=== PATIENT | female | born 1935 | race Caucasian/White ===

== ENCOUNTER → 2016-07-25 | Emergency (ER) | payer MEDICARE ==
[~2016-07-25] MED LIST: Aspirin TAB* 325 MG PO ONE; Iohexol 350* (CONTRAST) 500 ML MDV IV ONE; Meclizine TAB* 12.5 MG PO ONE
[2016-07-25 09:13] LABS: Hematocrit 37 % (35-47); Hemoglobin 11.9 g/dl (12.0-16.0); Mean Corpuscular HGB Conc 33 g/dl (31-36); Mean Corpuscular Hemoglobin 30 pg (27-31); Mean Corpuscular Volume 93 fL (80-97); Mean Platelet Volume 8 um3 (7.4-10.4); Red Blood Count 3.94 10^6/ul (4.0-5.4); Red Cell Distribution Width 15 % (10.5-15); White Blood Count 9.4 10^3/ul (3.5-10.8)
[2016-07-25 09:31] LABS: Albumin 3.6 g/dL (3.2-5.2); BUN/Creatinine Ratio 20.7 (8-20); C Reactive Protein 17.13 mg/L (< 5.00); EGFR African American 129.3 (>60); EGFR Non-African American 100.5 (>60); Globulin 3.3 g/dL (2-4); Magnesium 2.2 mg/dL (1.9-2.7); Total Bilirubin 0.4 mg/dL (0.2-1.0); Total Protein 6.9 g/dL (6.4-8.9)
[2016-07-25 09:33] LABS: Troponin I 0.03 ng/mL (<0.04)
[2016-07-25 09:36] LABS: Potassium 4.4 mmol/L (3.5-5.0)
--- NOTE | 2016-07-25 09:42 | RAD ---
HISTORY: Chest pain COMPARISONS: None VIEWS:1: Single frontal portable view of the chest at 9:25 AM FINDINGS: LINES AND TUBES: None. CARDIOMEDIASTINAL SILHOUETTE: The cardiomediastinal silhouette is normal for portable technique. PLEURA: The costophrenic angles are sharp. No pleural abnormalities are noted. LUNG PARENCHYMA: The lungs are clear. ABDOMEN: The upper abdomen is clear. There is no subphrenic gas. BONES AND SOFT TISSUES: The patient is status post median sternotomy. IMPRESSION: NO ACTIVE CARDIOPULMONARY DISEASE.
[2016-07-25 09:56] LABS: TSH (Thyroid Stimulating Horm) 2.11 mcIU/mL (0.34-5.60)
[2016-07-25 11:09] LABS: Urine Bacteria Absent (Absent); Urine Bilirubin Negative (Negative); Urine Glucose Negative (Negative); Urine Nitrite Negative (Negative)
--- NOTE | 2016-07-25 11:39 | RAD ---
HISTORY: Chest pain COMPARISONS: None TECHNIQUE: Multiple contiguous axial CT scans of the chest were obtained after the administration of nonionic intravenous contrast, timed to the pulmonary arterial phase of contrast enhancement.. Coronal and sagittal multiplanar reformations are also submitted for review. FINDINGS: NECK AND THYROID: The lower neck and thyroid are unremarkable. CHEST WALL: There is no lower cervical, axillary, or supraclavicular lymphadenopathy by size criteria. HEART AND PERICARDIUM: The heart is unremarkable. AORTA AND PULMONARY VASCULATURE: There is no pulmonary arterial filling defect to suggest pulmonary embolism. Evaluation of the aorta is limited secondary to suboptimal contrast opacification; however, there is no appreciable linear filling defect within the aorta to suggest aortic dissection. MEDIASTINUM: There is no mediastinal lymphadenopathy by size criteria. BECK: There is no hilar lymphadenopathy by size criteria. AIRWAY AND ESOPHAGUS: The airway is unremarkable, without endobronchial filling defect. The esophagus is grossly normal. LUNG PARENCHYMA: The lungs are clear. PLEURA: No pleural abnormalities are noted. UPPER ABDOMEN: The upper abdomen is unremarkable. BONES AND SOFT TISSUES: The patient is status post median sternotomy. OTHER: None. IMPRESSION: NO PULMONARY ARTERIAL FILLING DEFECT TO SUGGEST PULMONARY EMBOLISM
[2016-07-25 11:43] LABS: Erythrocyte Sed Rate 50 mm/Hr (0-40)
--- NOTE | 2016-07-25 13:09 | ED ---
Chase Pizano Karl, scribed for Maverick Campoverde MD on 07/25/16 at 0858 . HPI Chest Pain - HPI Summary HPI Summary: Pt is a 80 y/o female that presents to the ED c/o CP. Pt reported that she has been feeling intermittent right sided CP, tingling in her toes, and dizziness for the past 2 days. Pt stated that the CP is similar to the CP she felt when she had pericarditis in 1995. Pt described the pain as a stabbing pain that takes her breath away and is an 8/10 at its worst but is at a 0/10 while in the ED, with the last instance of pain being at 05:00 this morning. Pt stated that the episodes of pain last for approx 30 sec. Pt denied nausea, SOB, diaphoresis , and swelling in her ankles. 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 - History of Current Complaint Chief Complaint: EDChestPainROMI Time Seen by Provider: 07/25/16 08:50 Hx Obtained From: Patient Onset/Duration: Started Days Ago - 2, Atraumatic, Still Present Timing: Intermittent Pain Intensity: 0 - Allergy/Home Medications Allergies/Adverse Reactions: Allergies Allergy/AdvReac Type Severity Reaction Status Date / Time NSAIDs Allergy Rash Verified 07/25/16 08:52 PMH/Surg Hx/FS Hx/Imm Hx Infectious Disease History: No Infectious Disease History: Denies: Traveled Outside the US in Last 30 Days - Family History Known Family History: Positive: Cardiac Disease - mother, Other - [place] - sister - Social History Alcohol Use: None Substance Use Type: Reports: None Hx Tobacco Use: No Smoking Status (MU): Never Smoked Tobacco Review of Systems Negative: Skin Diaphoresis Eyes: Negative ENT: Negative Positive: Chest Pain Negative: Shortness Of Breath Negative: Nausea Genitourinary: Negative Negative: Edema Skin: Negative Neurological: Other - dizziness Positive: Paresthesia - intoes Psychological: Normal All Other Systems Reviewed And Are Negative: Yes Physical Exam Triage Information Reviewed: Yes Vital Signs On Initial Exam: Initial Vitals Temp Pulse Resp BP Pulse Ox 98.6 F 75 16 157/73 94 07/25/16 08:49 07/25/16 08:49 07/25/16 08:49 07/25/16 08:49 07/25/16 08:49 Vital Signs Reviewed: Yes Appearance: Positive: Well-Appearing, No Pain Distress Skin: Positive: Warm, Skin Color Reflects Adequate Perfusion, Dry Head/Face: Positive: Normal Head/Face Inspection Eyes: Positive: EOMI, DEE DEE ENT: Positive: Normal ENT inspection Neck: Positive: Supple, Nontender Respiratory/Lung Sounds: Positive: Clear to Auscultation, Breath Sounds Present Cardiovascular: Positive: Murmur - w/ irregular cardiac rhythm Abdomen Description: Positive: Nontender, Soft Bowel Sounds: Positive: Present Musculoskeletal: Positive: Normal, Strength/ROM Intact. Negative: Edema Left, Edema Right Neurological: Positive: Normal, Sensory/Motor Intact, Alert, Oriented to Person Place, Time Psychiatric: Positive: Affect/Mood Appropriate Diagnostics - Vital Signs Vital Signs Temp Pulse Resp BP Pulse Ox 07/25/16 08:49 98.6 F 75 16 157/73 94 - Laboratory Lab Results: Lab Results 07/25/16 07/25/16 07/25/16 Range/Units 09:00 09:00 09:00 WBC 9.4 (3.5-10.8) 10^3/ul RBC 3.94 L (4.0-5.4) 10^6/ul Hgb 11.9 L (12.0-16.0) g/dl Hct 37 (35-47) % MCV 93 (80-97) fL MCH 30 (27-31) pg MCHC 33 (31-36) g/dl RDW 15 (10.5-15) % Plt Count 309 (150-450) 10^3/ul MPV 8 (7.4-10.4) um3 Neut % (Auto) 61.9 (38-83) % Lymph % (Auto) 24.9 L (25-47) % [place] % (Auto) 7.3 (1-9) % Eos % (Auto) 4.7 (0-6) % Baso % (Auto) 1.2 (0-2) % Absolute Neuts (auto) 5.8 (1.5-7.7) 10^3/ul Absolute Lymphs (auto) 2.3 (1.0-4.8) 10^3/ul Absolute Monos (auto) 0.7 (0-0.8) 10^3/ul Absolute Eos (auto) 0.4 (0-0.6) 10^3/ul Absolute Basos (auto) 0.1 (0-0.2) 10^3/ul Absolute Nucleated RBC 0.01 10^3/ul Nucleated RBC % 0.1 ESR 50 H (0-40) mm/Hr INR (Anticoag Therapy) 1.03 (0.89-1.11) APTT 31.8 (26.0-36.3) seconds D-Dimer, Quantitative > 1050 H (Less Than 230) ng/mL Sodium 140 (133-145) mmol/L Potassium 4.4 (3.5-5.0) mmol/L Chloride 106 (101-111) mmol/L Carbon Dioxide 27 (22-32) mmol/L Anion Gap 7 (2-11) mmol/L BUN 12 (6-24) mg/dL Creatinine 0.58 (0.51-0.95) mg/dL Est GFR ( Amer) 129.3 (>60) Est GFR (Non-Af Amer) 100.5 (>60) BUN/Creatinine Ratio 20.7 H (8-20) Glucose 98 (70-100) mg/dL Lactic Acid (0.5-2.0) mmol/L Calcium 9.0 (8.6-10.3) mg/dL Magnesium 2.2 (1.9-2.7) mg/dL Total Bilirubin 0.40 (0.2-1.0) mg/dL AST 21 (13-39) U/L ALT 10 (7-52) U/L Alkaline Phosphatase 97 (34-104) U/L Total Creatine Kinase 30 (10-223) U/L CK-MB (CK-2) 3.3 (0.6-6.3) ng/mL Troponin I 0.03 (<0.04) ng/mL C-Reactive Protein 17.13 H (< 5.00) mg/L Total Protein 6.9 (6.4-8.9) g/dL Albumin 3.6 (3.2-5.2) g/dL Globulin 3.3 (2-4) g/dL Albumin/Globulin Ratio 1.1 (1-3) Lipase 24 (11.0-82.0) U/L TSH 2.11 (0.34-5.60) mcIU/mL Urine Color Urine Appearance Urine pH (5-9) Ur Specific Olds (1.010-1.030) Urine Protein (Negative) Urine Ketones (Negative) Urine Blood (Negative) Urine Nitrate (Negative) Urine Bilirubin (Negative) Urine Urobilinogen (Negative) Ur Leukocyte Esterase (Negative) Urine WBC (Auto) (Absent) Urine RBC (Auto) (Absent) Ur Squamous Epith Cells (Absent) Urine Bacteria (Absent) Urine Glucose (Negative) 07/25/16 07/25/16 Range/Units 09:00 10:50 WBC (3.5-10.8) 10^3/ul RBC (4.0-5.4) 10^6/ul Hgb (12.0-16.0) g/dl Hct (35-47) % MCV (80-97) fL MCH (27-31) pg MCHC (31-36) g/dl RDW (10.5-15) % Plt Count (150-450) 10^3/ul MPV (7.4-10.4) um3 Neut % (Auto) (38-83) % Lymph % (Auto) (25-47) % [place] % (Auto) (1-9) % Eos % (Auto) (0-6) % Baso % (Auto) (0-2) % Absolute Neuts (auto) (1.5-7.7) 10^3/ul Absolute Lymphs (auto) (1.0-4.8) 10^3/ul Absolute Monos (auto) (0-0.8) 10^3/ul Absolute Eos (auto) (0-0.6) 10^3/ul Absolute Basos (auto) (0-0.2) 10^3/ul Absolute Nucleated RBC 10^3/ul Nucleated RBC % ESR (0-40) mm/Hr INR (Anticoag Therapy) (0.89-1.11) APTT (26.0-36.3) seconds D-Dimer, Quantitative (Less Than 230) ng/mL Sodium (133-145) mmol/L Potassium (3.5-5.0) mmol/L Chloride (101-111) mmol/L Carbon Dioxide (22-32) mmol/L Anion Gap (2-11) mmol/L BUN (6-24) mg/dL Creatinine (0.51-0.95) mg/dL Est GFR ( Amer) (>60) Est GFR (Non-Af Amer) (>60) BUN/Creatinine Ratio (8-20) Glucose (70-100) mg/dL Lactic Acid 1.4 (0.5-2.0) mmol/L Calcium (8.6-10.3) mg/dL Magnesium (1.9-2.7) mg/dL Total Bilirubin (0.2-1.0) mg/dL AST (13-39) U/L ALT (7-52) U/L Alkaline Phosphatase (34-104) U/L Total Creatine Kinase (10-223) U/L CK-MB (CK-2) (0.6-6.3) ng/mL Troponin I (<0.04) ng/mL C-Reactive Protein (< 5.00) mg/L Total Protein (6.4-8.9) g/dL Albumin (3.2-5.2) g/dL Globulin (2-4) g/dL Albumin/Globulin Ratio (1-3) Lipase (11.0-82.0) U/L TSH (0.34-5.60) mcIU/mL Urine Color Yellow Urine Appearance Cloudy Urine pH 7.0 (5-9) Ur Specific Olds 1.009 L (1.010-1.030) Urine Protein Negative (Negative) Urine Ketones Negative (Negative) Urine Blood 1+ H (Negative) Urine Nitrate Negative (Negative) Urine Bilirubin Negative (Negative) Urine Urobilinogen Negative (Negative) Ur Leukocyte Esterase 3+ H (Negative) Urine WBC (Auto) 2+(11-20/hpf) H (Absent) Urine RBC (Auto) Trace(0-2/hpf) (Absent) Ur Squamous Epith Cells Present H (Absent) Urine Bacteria Absent (Absent) Urine Glucose Negative (Negative) Result Diagrams: 07/25/16 09:00 07/25/16 09:00 Lab Statement: Any lab studies that have been ordered have been reviewed, and results considered in the medical decision making process. - Radiology CXR Xray Interpretation: No Acute Changes Radiology Interpretation Completed By: Radiologist - IMPRESSION: NO ACTIVE CARDIOPULMONARY DISEASE. - EKG 08:50 Cardiac Rate: NL - at 68 bpm EKG Interpretation: Ectopic atrial rhythm, LBBB Re-Evaluation - Re-Evaluation First Eval Re-Evaluation Time: 10:48 Change: Unchanged Comment: Discussed consult with supervisor wall mirror department and results of imaging study Second Eval Re-Evaluation Time: 12:59 Change: Unchanged Comment: discussed plan for further treatment with pt Chest Pain Course/Dx - Course Assessment/Plan: DISCUSSED RESULTS WITH PATIENT. DISCUSSED WITH CARDIOLOGY, DR MONIQUE. WILL INCREASE ASPIRIN DOSE TO TREAT FOR POSTOPERATIVE PERICARDIAL SYNDROME. DISCHARGE HOME STABLE. - Diagnoses Provider Diagnoses: Chest pain, Pericardial disease or syndrome - Provider Notifications Discussed Care Of Patient With: Dr. Monique (Cardiology) at 10:30 Discharge - Discharge Plan Condition: Stable Disposition: HOME Patient Education Materials: Chest Pain (ED) Referrals: Tim Burgos MD [Medical Doctor] - Additional Instructions: FOLLOW UP WITH DR BURGOS SCHEDULED. TAKE THE EQUIVALENT OF 325MG OF ASPIRIN A DAY (ONE 325MG TABLET OR FOUR 81MG TABLETS). RETURN TO THE EMERGENCY DEPARTMENT FOR ANY WORSENING OF YOUR CONDITION; CHEST PAIN, SHORTNESS OF BREATH, YOU FEEL ILL OR QUESTIONS OR CONCERNS. The documentation as recorded by the Chase pittman Karl accurately reflects the service I personally performed and the decisions made by me, Maverick Campoverde MD.
[2016-07-25 13:44] VITALS: BP 132/78
== END | disposition home or self-care (01) ==
LOC: ED 08:44
DX: I31.9 Disease of pericardium, unspecified (principal); R07.9 Chest pain, unspecified
CPT/HCPCS: 36415; 71010; 71275; 80053; 81003; 81015; 82550; 82553; 83605; 83690; 83735; 84443; 84484; 85025; 85379; 85610; 85652; 85730; 86140; 87086; 93005; 99282; 99284; A9270-GY; Q9967

== ENCOUNTER 2019-10-10 11:16 | Observation (INO) | payer MEDICARE ==
--- NOTE | 2019-10-10 11:40 | ED ---
Respiratory - HPI Summary HPI Summary: 83 y/o female presented to [facility] by ambulance as a transfer from [facility] where she was diagnosed with pulmonary edema. Pt woke up at 4am with dyspnea, SOB, and dry cough. Pt denies fever, sore throat, myalgia, V/D, and leg edema. Pt was given Lasix in [facility] which made her feel better. Per EMS, vitals were normal at the scene. Pt has had surgery at the [facility] for a hypertrophic heart. Pt is not diabetic and has fhx of HTN. Pt is concerned about COVID-19 because someone who visits her frequently has been in contact with someone who was traveling in [place] for a long time. Pt has had no known direct contact with an individual with COVID-19. Medications reviewed. Allergies noted. - History of Current Complaint Stated Complaint: SHORT OF BREATH PER EMS Time Seen by Provider: 10/10/19 11:30 Hx Obtained From: Patient Onset/Duration: Lasting Hours, Still Present Character: Cough (Nonproductive), Dyspnea at Rest Sputum Amount: None Aggravating Factor(s): Nothing Alleviating Factor(s): Dose Of Medications - Lasix Associated Signs and Symptoms: SOB - Allergy/Home Medications Allergies/Adverse Reactions: Allergies Allergy/AdvReac Type Severity Reaction Status Date / Time NSAIDS (Non-Steroidal Allergy Unknown Verified 10/10/19 12:32 Anti-Inflamma Reaction Details PMH/Surg Hx/FS Hx/Imm Hx Endocrine/Hematology History: Denies: Hx Diabetes Cardiovascular History: Reports: Hx Hypertension, Other Cardiovascular Problems/ Disorders - PERICARDITIS 1996 Denies: Hx Pacemaker/ICD Respiratory History: Denies: Other Respiratory Problems/Disorders History: Denies: Hx Renal Disease - Surgical History Surgery Procedure, Year, and Place: open heart surgery-06/2016 Infectious Disease History: Denies: Traveled Outside the [place] in Last 30 Days - Family History Known Family History: Positive: Cardiac Disease - mother, Other - [place] - sister - Social History Alcohol Use: None Substance Use Type: Reports: None Hx Tobacco Use: No Smoking Status (MU): Never Smoked Tobacco Review of Systems Negative: Fever Negative: Sore Throat Positive: Shortness Of Breath, Cough - dry, Other - dyspnea Negative: Vomiting, Diarrhea Negative: Myalgia, Edema - legs All Other Systems Reviewed And Are Negative: Yes Physical Exam - Summary Physical Exam Summary: Constitutional: Well-developed, Well-nourished, Alert. (-) Distressed Skin: Warm, Dry HENT: Normocephalic; Atraumatic Eyes: Conjunctiva normal Neck: Musculoskeletal ROM normal neck. (-) JVD, (-) Stridor, (-) Tracheal deviation Cardio: Rhythm regular, rate normal, Heart sounds normal; Intact distal pulses; Radial pulses are 2+ and symmetric. (-) Murmur Pulmonary/Chest wall: Effort normal. (-) Respiratory distress, (-) Wheezes, (-) Rales, Speaking in full sentences Abd: Soft, (-) tenderness, (-) Distension, (-) Guarding, (-) Rebound Musculoskeletal: (-) Peripheral Edema Lymph: (-) Cervical adenopathy Neuro: Alert, Oriented x3 Psych: Mood and affect Normal Triage Information Reviewed: Yes Vital Signs Reviewed: Yes Procedures - Sedation Patient Received Moderate/Deep Sedation with Procedure: No Disposition - Course Course Of Treatment: Patient was transferred from [facility] with a suspected CHF exacerbation. Patient did not arrive with her blood tests or copy of her chest x-ray. Patient has had cough and shortness of breath and has never felt this way before. Given patient's rest for symptoms and being admitted to the hospital, patient was tested for Covid 19. Patient was admitted to the hospitalist - Diagnoses Provider Diagnoses: Pulmonary edema, Cough, SOB (shortness of breath), Hypertrophic cardiomyopathy - Physician Notifications Discussed Care Of Patient With: Carisa Li Time Discussed With Above Provider: 11:31 Instructed by Provider To: Other - Pt case was discussed with Dr. Hillman, who accepts the pt for admission. Discharge ED - Sign-Out/Discharge Documenting (check all that apply): Patient Departure - admit - Discharge Plan Condition: Stable Disposition: ADMITTED TO [facility] - Billing Disposition and Condition Condition: STABLE Disposition: Admitted to [facility] - Attestation Statements Document Initiated by Scribe: Yes Documenting Scribe: Armani Calvo Provider For Whom Hernando is Documenting (Include Credential): José Parham MD Scribe Attestation: Armani Pizano, scribed for José Parham MD on 10/10/19 at 1458. Scribe Documentation Reviewed: Yes Provider Attestation: The documentation as recorded by the scribe, Armani Calvo accurately reflects the service I personally performed and the decisions made by me, José Parham MD Status of Hernando Document: Viewed
[2019-10-10] MEDS ORDERED: Acetaminophen TAB* 325 MG PO PRN (12:19)
[2019-10-10] MEDS ORDERED: Ondansetron INJ* 2 MG/ML VIAL IV PRN (12:19)
[2019-10-10] MEDS ORDERED: Furosemide IV* 10 MG/ML VIAL (40 MG) IV SLOW PU ONE (12:22)
[2019-10-10 13:33] LABS: Troponin I 0.03 ng/mL (<0.03)
[2019-10-10 14:45] LABS: Influenza A Molecular Negative (Negative); Influenza B Molecular Negative (Negative)
[2019-10-10] MEDS: Enoxaparin(*) 40 MG/0.4 ML SYR SUBCUT SCH (14:46)
--- NOTE | 2019-10-10 15:37 | HP ---
CC: Dr. Tim Umaña * ADMISSION HISTORY AND PHYSICAL: DATE OF ADMISSION: 10/10/19 PRIMARY CARE PROVIDER: None. MY ATTENDING WHILE IN THE HOSPITAL: Dr. Carisa Li.* (DICTATED BY CARLA GUZMAN) OUTPATIENT INVESTMENT MANAGER: Dr. Tim Umaña. CHIEF COMPLAINT: Shortness of breath x9 hours. HISTORY OF PRESENT ILLNESS: Ms. Latham is an 83-year-old female with past medical history significant for obstructive sleep apnea; hypertrophic obstructive cardiomyopathy, status post myectomy; coronary artery disease; aortic stenosis; mitral stenosis, who presents to the emergency department after this morning she was awoken by a strange sound from her CPAP machine as it blew air into her chest. When she woke up and took off her CPAP, she noted she was more short of breath than she normally is. She feels like she might have been more short of breath for the last 2 days. She has been going out in public particularly to with limited interactions as well as to the grocery store; however, she does live by herself and has no known sick contacts. The patient has not had any fevers or chills. No chest pain. The patient has had no issues after her surgery. The patient had no high salt meals or other changes in her medications. It occurred 3 days ago and may have brought on her symptoms. The patient has had 3 hours of diarrhea as well coinciding with her shortness of breath. The patient has had no swelling in her legs. No shortness of breath lying flat. The patient has no general functional limitations prior to today. The patient was seen initially at [facility] Emergency Department and was diagnosed with CHF and was sent here; however, here given the patient's shortness of breath and new dry cough, the patient had a COVID-19 swab run. The patient will be a direct admission from the [facility] ED. PAST MEDICAL HISTORY: Obstructive sleep apnea, hypertrophic obstructive cardiomyopathy, hypertension, coronary artery disease, aortic stenosis, mitral stenosis, hyperlipidemia, GERD. PAST SURGICAL HISTORY: Cholecystectomy, septal ablation, back surgery, cardiac catheterization in 2016. MEDICATIONS: 1. Metoprolol tartrate 75 mg p.o. b.i.d. 2. Aspirin 81 mg p.o. daily. 3. Eye Multivitamin. ALLERGIES: DICLOXACILLIN, VYTORIN, NSAIDS. FAMILY HISTORY: The patient's father of stroke. The patient's mother of old age, but also had HOCM. The patient has a sister, who 5 years ago of breast cancer. SOCIAL HISTORY: The patient has never smoked, drank, or used illicit drugs. 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 The patient is not . The patient's surrogate decision maker will be her daughter, Chloe Dudley. REVIEW OF SYSTEMS: A 10-point review of systems was reviewed and is negative except as above in the HPI. PHYSICAL EXAMINATION GENERAL: The patient is an 83-year-old female who appears younger than stated age and sitting comfortably in bed, in no acute distress. VITAL SIGNS: At the time of evaluation, temperature 97.9, pulse rate 65, respiratory rate 16, oxygen saturation 94% on room air, blood pressure 154/82. HEENT: Head: Normocephalic, atraumatic. Sclerae anicteric. No conjunctival injection. Nasal mucosa moist. Oral mucosa moist. No pharyngeal erythema, discharge, or exudate. NECK: Supple, nontender. No lymphadenopathy. No carotid bruits auscultated. No JVD. RESPIRATORY: Clear to auscultation bilaterally. No wheezes, rales, or rhonchi. Good air exchange bilaterally. CARDIAC: Regular rate and rhythm. No clicks, murmurs, gallops, or rubs. Pulses are 2+ in the bilateral dorsalis pedis, posterior tibialis, and radial areas. ABDOMEN: Soft, nontender, nondistended. Bowel sounds present and normoactive in all 4 quadrants. No hepatosplenomegaly. No abdominal bruits auscultated. No hepatojugular reflux. GENITOURINARY: No suprapubic or CVA tenderness. NEURO: Cranial nerves II through XII intact. No focal deficits. Alert and oriented x3. PSYCHIATRIC: Pleasant and cooperative. SKIN: Clean, dry, and intact. No rash. DIAGNOSTIC STUDIES: Chest x-ray to this author's view shows increased interstitial markings primarily in the bases, cardiomegaly, possibly consistent with pulmonary edema or possibly COVID-19. Increased interstitial markings were also present somewhat on CTA from 2017. ASSESSMENT AND PLAN: Impression: Ms. Latham is an 83-year-old female with past medical history significant for obstructive sleep apnea, hypertrophic obstructive cardiomyopathy, aortic stenosis, and coronary artery disease, who presents to the emergency department with a 9-hour history of shortness of breath and dry cough without obvious provocation, who has risk factors for heart failure, who will be admitted to the hospital for heart failure management as well as ruling out coronavirus infection. 1. Shortness of breath, cough. The patient has new shortness of breath and cough that was relatively acute onset possibly with some gradual building over the last 2 days, but mainly coming up suddenly overnight. The patient's chest x-ray could be consistent with heart failure or infectious etiology. The patient has had no fevers at this point that have been documented. The patient also has not had any hypoxia and felt better after Lasix at [facility]. The patient will have an echocardiogram to assess her left ventricle as well as another dose of Lasix. Given the patient had no obvious risk factors or provocation for her new heart failure, the patient will be ruled out for coronavirus and monitored closely for fevers. The patient will likely go home tomorrow and this can be followed up with the [facility]. The patient also has new diarrhea that is nonbloody and nonsevere, but may be indicative of problem not related to heart failure. The patient will be risk stratified with lipid profile and a hemoglobin A1c as well and have troponins drawn now and repeated in the morning if indicated. She will also have a repeat chest x-ray in the morning. A BNP on this patient was not drawn. If this is markedly elevated, then consideration for removal of the coronavirus precautions will be undertaken. 2. Obstructive sleep apnea. Continue the patient's CPAP at home. 3. Hypertension. Continue the patient's metoprolol. 4. Coronary artery disease. Continue the patient's aspirin. The patient is statin intolerant. Lipid profile will be drawn. The patient has left bundle branch on her EKG, which is consistent with previous per [facility] records likely related to her myectomy, but no other ischemic signs. Troponins will be drawn as above. 5. Valvular disease. The patient has aortic stenosis and mitral stenosis. These will be further evaluated with an echocardiogram. 6. Hyperlipidemia. The patient is statin intolerant as above. If the patient rules in for myocardial infarction, then consideration for PCSK9 inhibitor or Zetia should be undertaken. 7. DVT prophylaxis: Lovenox subcu. The patient is a high risk. 8. FEN: The patient will have a heart-healthy diet without caffeine and will not be given fluids. TIME SPENT: Approximately 60 minutes was spent on the admission of this patient , 30 of which was spent [id number] with the patient obtaining history and physical and discussing treatment plan. This plan was discussed with my attending, Dr. Carisa Li, and she is in agreement. CARLA GUZMAN [id number]/[facility] #: [id number] SARAH
--- NOTE | 2019-10-10 15:41 | PN ---
Hospitalist Progress Note Date of Service: 10/10/19 Troponin came back mildly elevated with elevated BNP. With persistence of afebrile state and response to Lasix, will cancel COVID rule out precautions.
[2019-10-10] MEDS: Metoprolol Tartrate TAB* 50 mg PO SCH (21:28)
[2019-10-10 23:31] LABS: BUN/Creatinine Ratio 22.4 (8-20); Calcium 9.5 mg/dL (8.6-10.3); EGFR African American 77.7 (>60); EGFR Non-African American 64.2 (>60); Potassium 3.5 mmol/L (3.5-5.0)
[2019-10-10] MEDS ORDERED: Potassium Chlor TAB* 20 MEQ TAB.ER PO ONE (23:36)
[2019-10-11 05:44] LABS: ABS Basophils 0.1 10^3/ul (0-0.2); ABS Eosinophils 0.2 10^3/ul (0-0.6); ABS Lymphocytes 2.8 10^3/ul (1.0-4.8); ABS Neutrophils 7.6 10^3/ul (1.5-7.7); Eosinophil % 1.3 %; Hematocrit 43 % (35-47); Hemoglobin 14.4 g/dL (12.0-16.0); Lymphocyte % 23.8 %; Mean Corpuscular HGB Conc 34 g/dL (31-36); Mean Corpuscular Hemoglobin 32 pg (27-31); Mean Corpuscular Volume 93 fL (80-97); Mean Platelet Volume 8.3 fL (7.4-10.4); Platelet Count 214 10^3/uL (150-450); Red Blood Count 4.56 10^6 /uL (3.70-4.87); Red Cell Distribution Width 14 % (10-15); White Blood Count 11.7 10^3/uL (3.5-10.8)
[2019-10-11 06:07] LABS: BUN/Creatinine Ratio 28.8 (8-20); Calcium 9.6 mg/dL (8.6-10.3); EGFR African American 103.7 (>60); EGFR Non-African American 85.7 (>60); HDL Cholesterol 40.2 mg/dL; Magnesium 2.1 mg/dL (1.9-2.7); Potassium 4.1 mmol/L (3.5-5.0)
[2019-10-11] MEDS ORDERED: Perflutren Lipid Microsphere* 3 ML VIAL ONE (08:02)
[2019-10-11] MEDS ORDERED: Aspirin EC TAB* 81 MG TAB.EC PO SCH (09:00)
--- NOTE | 2019-10-11 09:10 | ECHO ---
*[facility]* [place] [address] Fax #: [phone] Transthoracic Echocardiogram Patient: Mayelin Latham : 1935 Study Date: 10/11/2019 Age: 84 Gender: F HR: 66 bpm Height: 60 in /152.4 cm BSA: 1.6 m^2 Weight: 139.7 lb /63.5 kg BMI: 27.3 kg/m^2 *Supervisor [employer]: * Maryan Urbano [facility] *Referring Physician: * Maverick Lerma *Reading Physician: * Elkin Hunter MD Indications: SOB. History: Left ventricular outflow tract obstruction. Coronary artery disease. Hypertrophic cardiomyopathy. The patient is status post cardiac surgery. Aortic stenosis. Mitral regurgitation. Risk factors: Hypertension. Dyslipidemia. Conclusions Summary: - Left ventricle: The cavity size is mildly reduced. Wall thickness is moderately to severely increased. Systolic function is normal. The estimated ejection fraction is 55-60%. There is dynamic obstruction at rest in the outflow tract, with a peak gradient of 14 mm Hg. - Right ventricle: Systolic function is normal. - Ventricular septum: The interventricular septum appears dyssynchronous due to LBBB - Mitral valve: The findings are consistent with mild to moderate stenosis. - Aortic valve: The leaflets are moderately thickened. The findings are consistent with moderate stenosis. The systolic velocity-time integral is 63.0 cm. The LVOT to aortic valve VTI ratio is 0.6. The valve area by the velocity-time integral method is 1.62 cm^2. The valve area by the peak velocity method is 1.74 cm^2. - Tricuspid valve: There is no significant regurgitation. - Pulmonary arteries: Systolic pressure can not be accurately estimated. - Compared to study of 09/24/17, there is no significant change. Study data: Transthoracic echocardiogram. Procedure: Transthoracic echocardiography was performed. Image quality was adequate. Intravenous Definity , 2 mlswas administered. Complete 2D, spectral Doppler, and color flow Doppler. Location: Bedside. Patient status: Inpatient. Patient room number: 403. Rhythm: Normal sinus rhythm. Findings Left ventricle: The cavity size is mildly reduced. Wall thickness is moderately to severely increased. Systolic function is normal. The estimated ejection fraction is 55-60%. There is dynamic obstruction at rest in the outflow tract, with a peak gradient of 14 mm Hg. Regional wall motion abnormalities: Hypokinesis of the basalinferoseptal myocardium; consistent with postoperative changes. Doppler parameters are consistent with abnormal left ventricular relaxation (grade 1 diastolic dysfunction). Right ventricle: The cavity size is normal. Systolic function is normal. Ventricular septum: The interventricular septum appears dyssynchronous due to LBBB Left atrium: The atrium is severely dilated. Right atrium: The atrium is normal in size. Mitral valve: The Mitral valve annulus appears . The leaflets are moderately thickened. The findings are consistent with mild to moderate stenosis. There is mild regurgitation, directed eccentrically. Aortic valve: The leaflets are moderately thickened. Valve mobility is restricted. The findings are consistent with moderate stenosis. There is mild regurgitation. Tricuspid valve: The leaflets are normal thickness. There is no evidence of stenosis. There is no significant regurgitation. Pulmonic valve: The leaflets are normal thickness. There is no evidence of stenosis. There is no significant regurgitation. Aorta: The aortic root appears normal. The aortic arch appears normal. Pericardium: There is no significant pericardial effusion. Pulmonary arteries: Systolic pressure can not be accurately estimated. Systemic veins: Inferior vena cava: The vessel is normal in size. There is (>= 50%) respiratory change in the IVC dimension. Measurements Left ventricle Value Ref Aortic valve Value Ref HAMILTON, LAX (L) 3.4 cm 3.8 - 5.2 Marlene diam, ED 1.7 cm -------- ESD, LAX 3.0 cm 2.2 - 3.5 Peak v, S 3.1 m/sec -------- FS, LAX (L) 10 % 27 - 45 VTI, S 63.0 cm -------- PW, ED, LAX (H) 1.6 cm 0.6 - 0.9 Mean grad, S 19.0 mm Hg -------- E', lat marlene, TDI (L) 4.7 cm/sec >=10.0 Peak grad, S 38.0 mm Hg -------- E/e', lat marlene, 25 LVOT/AV, VTI ratio 0.6 --- ----- TDI ISRAEL, VTI 1.62 cm^2 -------- E', med marlene, TDI (L) 2.4 cm/sec >=7.0 ISRAEL, Vmax 1.74 cm^2 -------- E/e', med marlene, 49 AR peak v 4.26 m/sec --- ----- TDI AR PHT 565 ms -------- E', avg, TDI 3.6 cm/sec AR peak grad 73 mm Hg --- ----- E/e', avg, TDI (H) 33 <=14 Mitral valve Value Ref LVOT Value Ref Peak E 1.18 m/sec -------- Diam, S 1.90 cm Peak A 1.68 m/sec -------- Area 2.8 cm^2 Decel time 306 ms -------- Peak mandie, S 1.9 m/sec PHT 161 ms -------- VTI, S 36.0 cm Mean grad, D 5.0 mm Hg -------- Peak grad, S 14 mm Hg Peak grad, D 12.0 mm Hg -------- Mean grad, S 8 mm Hg Peak E/A ratio 0.7 -------- SV 107 ml MVA, PHT 1.4 cm^2 -------- Ventricular septum Value Ref Pulmonic valve Value Ref IVS, ED (H) 1.9 cm 0.6 - 0.9 Peak v, S 0.91 m/sec -------- Peak grad, S 3.0 mm Hg -------- Right ventricle Value Ref HAMILTON, LAX 2.2 cm Aortic root Value Ref HAMILTON minor ax, A4C 2.3 cm 1.9 - 3.5 Root diam 2.4 cm <3.8 mid Root max diam/bsa, 1.5 cm/m^2 1.4 - ED 2.2 Left atrium Value Ref AP dim, ES 3.00 cm 2.70 - Ascending aorta Value Ref 3.80 AAo AP diam, S 2.2 cm -------- ML dim, A4C 4.3 cm AAo AP diam/bsa, S 1.4 cm/m^2 -------- SI dim, A4C 6.6 cm Vol/bsa, ES, A/L (H) 56 ml/m^2 16 - 34 Decending aorta Value Ref Leo peak mandie 0.73 m/sec -------- Right atrium Value Ref SI dim, ES 4.8 cm 3.4 - 5.3 Inferior vena cava Value Ref ML dim, ES, A4C 3.1 cm 2.6 - 4.4 Diam 1.4 cm -------- Estimated RAP 8 mm Hg Legend: (L) and (H) bakari values outside specified reference range. Prepared and electronically signed by Elkin Hunter MD 10/11/2019 09:10
[2019-10-11] MEDS: Metoprolol Tartrate TAB* 50 mg PO SCH (09:18)
[2019-10-11 12:19] VITALS: BP 129/63
[2019-10-11] MEDS: Enoxaparin(*) 40 MG/0.4 ML SYR SUBCUT SCH (13:13)
--- NOTE | 2019-10-11 20:48 | DS ---
CC: Dr. Tim Umaña * DISCHARGE SUMMARY: DATE OF ADMISSION: 10/10/19 DATE OF DISCHARGE: 10/11/19 PRIMARY CARE PROVIDER: Dr. Pete Plascencia. METAL WIRE COATING OPERATOR: Dr. Tim Umaña. ATTENDING PHYSICIAN: Dr. Carisa Li.* (DICTATED BY JENIFFER COTTO NP) PRIMARY DIAGNOSES: 1. Shortness of breath, mild. 2. Pulmonary edema. SECONDARY DIAGNOSES: 1. Hypertrophic obstructive cardiomyopathy. 2. Obstructive sleep apnea. 3. Hypertension. 4. Coronary artery disease. 5. Aortic stenosis. 6. Mitral stenosis. 7. Hyperlipidemia. 8. Gastroesophageal reflux disease. STUDIES WHILE IN THE HOSPITAL: 1. Chest x-ray on 10/11/19, reads as no active cardiopulmonary disease. 2. Transthoracic echocardiogram on 10/11/19, reads as the left ventricular chamber size is mildly reduced. Aortic valve thickness is moderately to severely increased, systolic function is normal, ejection fraction is 55% to 60% . The aortic dynamic obstruction at rest in the outflow tract with a peak gradient of 14 mmHg. Right ventricular systolic function is normal. The interventricular septum appears asynchronous due to left bundle-branch block. Findings are consistent with [id number] mitral valve stenosis. Aortic valve leaflets are mildly thickened. The findings are consistent with moderate aortic stenosis. There is no significant tricuspid regurgitation. Systolic pressure in the pulmonary cannot be accurately estimated. Compared to the study of 09/24/17, there is no significant change. HISTORY OF PRESENT ILLNESS AND HOSPITAL COURSE: Ms. Latham is an 84-year-old female with past medical history of hypertrophic obstructive cardiomyopathy, obstructive sleep apnea, hypertension, coronary artery disease, and GERD, who presented to the emergency room on 10/10/19, with complaints of shortness of breath. Please see the history and physical by CARLA Echols, for complete summary with the events leading up to this hospitalization. In short, the patient reports waking up that morning feeling short of breath and noted she was having some mild shortness of breath for previous 2 days. She had no other symptoms. In the emergency room, labs revealed a mildly elevated troponin 0.03 and a mildly elevated BNP at 298. Initially, the patient was swabbed for COVID-19 though that testing was canceled as the patient was afebrile and did not have a cough. She was admitted by the hospitalist service. The patient did receive one dose of Lasix on the day of admission and her symptoms nearly immediately resolved after the dose of Lasix. The chest x-ray was not read as having pulmonary edema, but it seems as though pulmonary edema was likely the cause of the shortness of breath. The patient had . She was able to ambulate in the hallways this morning without any shortness of breath and reports feeling well. She has continued to deny any chest pain or cough. Repeat echo today was relatively unchanged from previous study, although the patient is known to have a history of obstructive cardiomyopathy, which would explain these symptoms. She was noted to have an A1c of 6.4 putting her in the range of prediabetes. Cholesterol was also noted to be higher than ideal with a total cholesterol of 199 and the LDL of 133. The patient reports feeling well and would like to go home today. PHYSICAL EXAMINATION: On exam, she is alert and oriented x4 with no focal neurological deficits. Heart has a regular rate and rhythm without murmurs, rubs or gallops. Lungs are clear to auscultation without rhonchi, wheezes or rales. There is no edema. Ms. Latham is stable for discharge. Most recent vitals are as follows: Temp 97.3, heart rate 61, respiratory rate 16, oxygen saturation 95% on room air, blood pressure 129/63. DISCHARGE MEDICATIONS: New: 1. Furosemide 10 mg p.o. daily. Continued: 1. Metoprolol tartrate 75 mg p.o. b.i.d. 2. Aspirin 162 mg p.o. daily. 3. PreserVision 1 cap p.o. daily. DISCHARGE PLAN: Ms. Latham will be discharged home. Activity will be as tolerated. Diet will be heart healthy. Medications are noted above. The patient has been started on a small dose of daily Lasix to relieve her symptoms. She does report that she has a followup with Dr. Umaña in the next couple weeks and I will defer any further medication changes to him at that time. She should additionally follow up with her primary care provider in the next 4 to 7 days. The patient should report to the emergency room or nearest hospital for any worsening of symptoms, shortness of breath, lightheadedness, dizziness, chest discomfort, high fevers, chills, night sweats, loss of consciousness or any other worrisome signs or symptoms. DISCHARGE CONDITION: Stable. DISCHARGE DISPOSITION: Home. This is a summarized report of a complex medical history and hospital stay. For further details, please see the entire medical record. TIME SPENT: Approximately 40 minutes was spent on this discharge. JENIFFER COTTO NP [id number]/[facility] #: [id number] SARAH
== END 2019-10-11 13:05 | disposition home or self-care (01) ==
LOC: ED 11:16 → MED 12:19
PROVIDERS: ADMIT Hospitalist; ATTEND Hospitalist
DX: R06.02 Shortness of breath (principal); J81.1 Chronic pulmonary edema; I42.1 Obstructive hypertrophic cardiomyopathy; G47.33 Obstructive sleep apnea (adult) (pediatric); I10 Essential (primary) hypertension; I25.10 Atherosclerotic heart disease of native coronary artery without angina pectoris; I35.0 Nonrheumatic aortic (valve) stenosis; I05.0 Rheumatic mitral stenosis; E78.5 Hyperlipidemia, unspecified; K21.9 Gastro-esophageal reflux disease without esophagitis; Z79.82 Long term (current) use of aspirin; Z79.899 Other long term (current) drug therapy; Z88.0 Allergy status to penicillin; Z20.828 Contact with and (suspected) exposure to other viral communicable diseases
CPT/HCPCS: 36415; 71045; 80048; 80061; 83036; 83735; 83880; 84484; 85025; 93005; 93306; 96374; 99284; A9270-GY; C8929; G0378; J1940; U0002

== ENCOUNTER 2024-03-04 09:57 | Observation (INO) ==
[2024-03-04 12:34] LABS: Hematocrit 41.3 % (35-45); Hemoglobin 13.8 g/dL (11.5-14.3); Mean Corpuscular Hemoglobin 34.4 pg (27-33); Mean Corpuscular Hgb Conc 33.5 g/dL (31-36); Mean Corpuscular Volume 102.7 fL (80-97); Mean Platelet Volume 8.7 fL (7.5-11.2); Platelet Count 138 10^3/uL (150-450); Red Blood Count 4.02 10^6/uL (3.63-4.92); Red Cell Distribution Width 16.2 % (12-17); White Blood Count 9.2 10^3/uL (3.8-11.8)
[2024-03-04 13:12] LABS: ABS Basophils 0.1 10^3/uL (0.0-0.1); ABS Eosinophils 0.1 10^3/uL (0.0-0.5); ABS Lymphocytes 1.5 10^3/uL (1.0-4.8); ABS Monocytes 0.9 10^3/uL (0.0-0.9); ABS Neutrophils 6.5 10^3/uL (1.5-7.6); ABS Nucleated RBC 0.03 10^3/ul; Eosinophil % 1.3 %; Nucleated Red Blood Cells % 0.3 %/100WBC (0.0-0.8); RBC Morphology Normal (Normal)
[2024-03-04 13:13] LABS: Albumin 3.7 g/dL (3.2-5.2); Albumin/Globulin Ratio 1.2 (1-3); Calcium 8.7 mg/dL (8.6-10.3); Creatinine, Serum 0.54 mg/dL (0.51-0.95); Globulin 3.1 g/dL (2-4); Magnesium 1.9 mg/dL (1.9-2.7); Potassium 3.9 mmol/L (3.5-5.0); Total Bilirubin 2.6 mg/dL (0.2-1.0); Total Protein 6.8 g/dL (6.4-8.9); eGFR CKD-EPI 89.6 (>60)
[2024-03-04 14:01] LABS: High Sensitivity Troponin 1 Hr 54 pg/mL (<15)
[2024-03-04] MEDS: Furosemide 40 mg/4 ml IV VIAL IV ONE (14:05)
[2024-03-04 16:01] LABS: Urine Appearance Clear; Urine Bilirubin Negative (Negative); Urine Blood Negative (Negative); Urine Color Yellow; Urine Glucose Negative (Negative); Urine Ketones Negative (Negative); Urine Nitrite Negative (Negative); Urine Protein Trace (Negative); Urine Specific Gravity 1.014 (1.002-1.030); Urine Urobilinogen Negative (Negative); Urine pH 6.5 (5.0-8.0)
[2024-03-04] MEDS ORDERED: Ondansetron 4 mg VIAL 2 MG/ML 2 ml VIAL IV PRN (19:27)
[2024-03-04] MEDS: Furosemide 20 mg/2 ml IV VIAL IV SCH (21:03)
[2024-03-04] MEDS: Enoxaparin 40 MG/0.4 ML SYR SUBCUT SCH (21:08)
[2024-03-05 06:45] LABS: ABS Basophils 0.1 10^3/uL (0.0-0.1); ABS Eosinophils 0.2 10^3/uL (0.0-0.5); ABS Lymphocytes 1.3 10^3/uL (1.0-4.8); ABS Monocytes 0.9 10^3/uL (0.0-0.9); ABS Neutrophils 7.3 10^3/uL (1.5-7.6); Eosinophil % 1.7 %; Hematocrit 40.3 % (35-45); Hemoglobin 13.5 g/dL (11.5-14.3); Lymphocyte % 13.8 %; Mean Corpuscular Hgb Conc 33.6 g/dL (31-36); Mean Corpuscular Volume 101.4 fL (80-97); Mean Platelet Volume 8.6 fL (7.5-11.2); Platelet Count 143 10^3/uL (150-450); Red Blood Count 3.97 10^6/uL (3.63-4.92); Red Cell Distribution Width 15.9 % (12-17); White Blood Count 9.7 10^3/uL (3.8-11.8)
[2024-03-05 07:04] LABS: Calcium 8.6 mg/dL (8.6-10.3); Creatinine, Serum 0.55 mg/dL (0.51-0.95); Magnesium 1.9 mg/dL (1.9-2.7); Phosphorus 3.4 mg/dL (2.5-5.0); Potassium 3.5 mmol/L (3.5-5.0); eGFR CKD-EPI 89.2 (>60)
[2024-03-05 07:05] LABS: INR 1.57 (0.83-1.13)
[2024-03-05] MEDS: Albuterol/Ipratropium NEB.SOL (2.5/0.5 MG) 3 ML NEB.SOLN INH SCH (07:43)
[2024-03-05] MEDS: Cholecalciferol (VIT D3) 1,000 unit TAB PO SCH (09:48)
[2024-03-05] MEDS: Aspirin EC 81 mg TAB.EC (enteric coated) PO SCH (09:48)
[2024-03-05] MEDS: NF:Multivitamins/Minera Areds(NF) CAP PO SCH (10:02)
[2024-03-05] MEDS: Sulfur Hexaflouride MICROSPHR 25 MG VIAL IV ONE (10:38)
[2024-03-05] MEDS ORDERED: Sulfur Hexaflouride MICROSPHR 25 MG VIAL ONE (10:51)
[2024-03-05] MEDS: Iohexol 350 (CONTRAST) 500 ML MDV IV ONE (12:07)
[2024-03-05] MEDS: Magnesium Sulfate 2 gm BAG 2 GM/50 ML BAG IVPB ONE (12:36)
[2024-03-05] MEDS: Potassium Chlor 20 meq TAB.ER PO ONE (12:37)
[2024-03-06 08:53] LABS: Hematocrit 42.5 % (35-45); Hemoglobin 14.3 g/dL (11.5-14.3); Mean Corpuscular Hemoglobin 33.9 pg (27-33); Mean Corpuscular Hgb Conc 33.6 g/dL (31-36); Mean Platelet Volume 8.6 fL (7.5-11.2); Platelet Count 162 10^3/uL (150-450); Red Blood Count 4.21 10^6/uL (3.63-4.92); Red Cell Distribution Width 16.2 % (12-17); White Blood Count 7.7 10^3/uL (3.8-11.8)
[2024-03-06 09:23] LABS: Creatinine, Serum 0.57 mg/dL (0.51-0.95); Magnesium 2.1 mg/dL (1.9-2.7); eGFR CKD-EPI 88.4 (>60)
[2024-03-07 06:03] VITALS: BP 133/90
== END 2024-03-07 10:38 | disposition home or self-care (01) ==
LOC: EDHOLD 09:57 → ED 09:57 → MEDTELE 21:28
PROVIDERS: ADMIT Internal Medicine; ATTEND Internal Medicine

== ENCOUNTER 2024-07-28 13:44 | Inpatient (IN) ==
[2024-07-28 15:08] LABS: ABS Basophils 0.2 10^3/uL (0.0-0.1); ABS Eosinophils 0.1 10^3/uL (0.0-0.5); ABS Lymphocytes 2.7 10^3/uL (1.0-4.8); ABS Monocytes 1.2 10^3/uL (0.0-0.9); ABS Neutrophils 7.5 10^3/uL (1.5-7.6); ABS Nucleated RBC 0.01 10^3/ul; Hemoglobin 15.2 g/dL (11.5-14.3); Mean Corpuscular Hemoglobin 33.1 pg (27-33); Mean Corpuscular Hgb Conc 33.7 g/dL (31-36); Mean Corpuscular Volume 98.3 fL (80-97); Mean Platelet Volume 8.5 fL (7.5-11.2); Nucleated Red Blood Cells % 0.1 %/100WBC (0.0-0.8); Platelet Count 219 10^3/uL (150-450); Red Blood Count 4.58 10^6/uL (3.63-4.92); Red Cell Distribution Width 13.5 % (12-17); White Blood Count 11.7 10^3/uL (3.8-11.8)
[2024-07-28 16:13] LABS: Albumin 4.2 g/dL (3.5-5.7); Albumin/Globulin Ratio 1.3 (1-3); Creatinine, Serum 0.97 mg/dL (0.51-0.95); Globulin 3.3 g/dL (2-4); Potassium 4.5 mmol/L (3.5-5.0); Total Bilirubin 0.7 mg/dL (0.2-1.0); Total Protein 7.5 g/dL (6.4-8.9); eGFR CKD-EPI 56.9 (>60)
[2024-07-28] MEDS: Iodixanol 320 (CONTRAST) 100 ML SDV IV ONE (17:53)
[2024-07-28] MEDS ORDERED: Iodixanol 320 (CONTRAST) 100 ML SDV IV ONE (18:16)
[2024-07-28 19:56] LABS: High Sensitivity Troponin 1 Hr 49 pg/mL (<15)
[2024-07-29 01:54] LABS: Urine Appearance Clear; Urine Bacteria Absent /HPF (Absent); Urine Bilirubin Negative (Negative); Urine Blood Negative (Negative); Urine Color Yellow; Urine Glucose Negative (Negative); Urine Ketones Negative (Negative); Urine Nitrite Negative (Negative); Urine Protein 1+ (>=30 mg/dL) (Negative); Urine Red Blood Cell Absent /HPF (0-Trace); Urine Specific Gravity >1.050 (1.002-1.030); Urine Squamous Epithelial Cell Present /HPF (Absent); Urine Transitional Epithelial Present /HPF (Absent); Urine Urobilinogen Negative (Negative); Urine White Blood Cell 3+(>20/hpf) /HPF (0-Trace)
[2024-07-29 07:05] LABS: ABS Basophils 0.1 10^3/uL (0.0-0.1); ABS Eosinophils 0.2 10^3/uL (0.0-0.5); ABS Lymphocytes 2.2 10^3/uL (1.0-4.8); ABS Neutrophils 6.9 10^3/uL (1.5-7.6); ABS Nucleated RBC 0.02 10^3/ul; Eosinophil % 1.6 %; Hematocrit 40.6 % (35-45); Hemoglobin 14.2 g/dL (11.5-14.3); Mean Corpuscular Hemoglobin 34.5 pg (27-33); Mean Corpuscular Hgb Conc 34.9 g/dL (31-36); Mean Corpuscular Volume 98.9 fL (80-97); Mean Platelet Volume 8.3 fL (7.5-11.2); Nucleated Red Blood Cells % 0.2 %/100WBC (0.0-0.8); Platelet Count 191 10^3/uL (150-450); Red Blood Count 4.11 10^6/uL (3.63-4.92); Red Cell Distribution Width 13.3 % (12-17); White Blood Count 10.4 10^3/uL (3.8-11.8)
[2024-07-29 07:51] LABS: Calcium 8.9 mg/dL (8.6-10.3); Creatinine, Serum 0.78 mg/dL (0.51-0.95); Potassium 4.2 mmol/L (3.5-5.0); eGFR CKD-EPI 73.9 (>60)
[2024-07-29] MEDS: Aspirin EC 81 mg TAB.EC (enteric coated) PO SCH (10:19)
[2024-07-29 11:36] LABS: TSH Ultra Thyroid Stim Horm 4.47 mcIU/mL (0.34-5.60)
[2024-07-30 07:03] LABS: Calcium 9.1 mg/dL (8.6-10.3); Creatinine, Serum 0.75 mg/dL (0.51-0.95); Potassium 4.5 mmol/L (3.5-5.0); eGFR CKD-EPI 77.5 (>60)
[2024-07-30] MEDS ORDERED: fentaNYL 100 mcg/2 ml 50 MCG/ML VIAL ONE (11:51)
[2024-07-30] MEDS ORDERED: Midazolam 5 mg/5 ml VIAL 1 mg/ml 5 ml VIAL (5 mg) ONE (11:51)
[2024-07-30] MEDS ORDERED: Flumazenil 0.5 mg/5 ml 0.1 MG/ML 5 ml VIAL ONE (11:51)
[2024-07-30] MEDS ORDERED: Naloxone 0.4 mg VIAL 0.4 mg/ml 1 ml VIAL ONE (11:51)
[2024-07-31 07:43] LABS: Hematocrit 39.9 % (35-45); Hemoglobin 14.1 g/dL (11.5-14.3); Mean Corpuscular Hemoglobin 35.1 pg (27-33); Mean Corpuscular Hgb Conc 35.3 g/dL (31-36); Mean Corpuscular Volume 99.4 fL (80-97); Mean Platelet Volume 8.4 fL (7.5-11.2); Platelet Count 170 10^3/uL (150-450); Red Blood Count 4.01 10^6/uL (3.63-4.92); Red Cell Distribution Width 13.3 % (12-17); White Blood Count 10.8 10^3/uL (3.8-11.8)
[2024-07-31 08:21] LABS: Creatinine, Serum 0.86 mg/dL (0.51-0.95); Potassium 4.2 mmol/L (3.5-5.0); eGFR CKD-EPI 65.8 (>60)
[2024-07-31 09:27] LABS: ABS Basophils 0.1 10^3/uL (0.0-0.1); ABS Eosinophils 0.2 10^3/uL (0.0-0.5); ABS Lymphocytes 1.9 10^3/uL (1.0-4.8); ABS Monocytes 0.9 10^3/uL (0.0-0.9); ABS Neutrophils 7.8 10^3/uL (1.5-7.6); ABS Nucleated RBC 0.01 10^3/ul; Eosinophil % 2.1 %; Lymphocyte % 17.2 %; Nucleated Red Blood Cells % 0.1 %/100WBC (0.0-0.8); RBC Morphology Normal (Normal)
[2024-07-31] MEDS ORDERED: Benzocaine/Menthol LOZ PO PRN (09:41)
[2024-07-31 11:04] VITALS: BP 109/63
== END 2024-07-31 12:39 | disposition home or self-care (01) | DRG 309 ==
LOC: EDHOLD 13:44 → ED 13:44 → SUATTDRO 23:31 → MEDTELE 07-29 11:09
PROVIDERS: ADMIT Internal Medicine; ATTEND Student in an Organized Health Care Education/Training Program